=== PATIENT | male | born 1995 | race African-American/Black ===

== ENCOUNTER 2017-09-13 18:30 | Emergency (ER) | payer OTHER ==
[~2017-09-13] VITALS: Ht 182.9 cm; Wt 91.5 kg
[~2017-09-13 18:30] MED LIST: MEDROL DOSEPAK4 MG PO; PREDNISONE20 MG PO; PROAIR HFA8.5 GM IH; PROVENTIL HFA6.7 GM IH; VENTOLIN HFA18 GM IH
[2017-09-13 20:16] LABS: HEMATOCRIT 45.7 % (38.0-50.0); MCH 29.3 PG (29.0-34.0); MCHC 35.2 G/DL (30.0-36.0); MCV 83.2 FL (86-99); MEAN PLAT.VOLUME 10.3 uM^3 (9.0-12.4); PLATELET COUNT 275 K/uL (156-360); RBC DIS.WIDTH-CV 12.1 % (11.8-14.6); RED BLOOD COUNT 5.49 M/uL (4.00-5.50); WHITE BLOOD COUNT 7.7 K/uL (4.1-10.2)
[2017-09-13 20:34] LABS: ANION GAP 9 MEQ/L (2-14); CHLORIDE 103 MEQ/L (99-109); POTASSIUM 3.9 MEQ/L (3.7-5.4); SAMPLE HEMOLYSIS CHECK 0; SAMPLE ICTERIC CHECK 0; SAMPLE LIPEMIA CHECK 0; SODIUM 137 MEQ/L (136-147)
[2017-09-13 20:39] LABS: GFR ESTIMATE (CALCULATED) > 59 mL/min/ (58.99-99999); GLUCOSE 145 mg/dL (70-99); UREA NITROGEN (BUN) 15 mg/dL (9-23)
[2017-09-13] MEDS ORDERED: VENTOLIN HFA18 GM IH (22:18)
[2017-09-13] MEDS ORDERED: MEDROL DOSEPAK4 MG PO (22:18)
[2017-09-13 22:39] VITALS: BP 127/87
== END 2017-09-13 22:40 | disposition home or self-care (01) ==
LOC: EXP 18:30 → EME 18:30 → EXP 22:40
DX: J45.909 Unspecified asthma, uncomplicated (principal); Z87.891 Personal history of nicotine dependence
CPT/HCPCS: 71020; 80048; 85027; 93005; 94640; 99281; 99283; J7512